=== PATIENT | female | born 1990 | race Caucasian/White ===

== ENCOUNTER 2019-05-08 22:12 | Emergency (ER) | payer BC, OTHER ==
[2019-05-08 23:12] LABS: APPEARANCE,URINE Clear (CLEAR); BILIRUBIN,URINE Negative (NEGATIVE); COLOR,URINE Yellow (YELLOW); GLUCOSE, URINE (UA) Negative (NEGATIVE); KETONES,URINE Negative (NEGATIVE); LEUKOCYTE ESTERASE ,URINE Negative (NEGATIVE); NITRATE,URINE Negative (NEGATIVE); OCCULT BLOOD,URINE Negative (NEGATIVE); PROTEIN,URINE Negative (NEGATIVE); UROBILINOGEN,URINE 0.2 mg/dL (0.2-1.0)
[2019-05-08 23:13] LABS: HCG,QUAL RESULT NEGATIVE (NEGATIVE)
[2019-05-08 23:15] LABS: BASOPHILS % (AUTO) 0.5 % (0.0-5.0); EOSINOPHILS % (AUTO) 2.4 % (0.0-8.0); HEMATOCRIT 36.3 % (36-48); MEAN CORPUSCULAR HEMOGLOBIN 29.5 pg (27.0-33.0); MEAN CORPUSCULAR HGB CONC 33.8 g/dL (32.0-36.0); MEAN CORPUSCULAR VOLUME 87.1 fL (79-99); MONOCYTES % (AUTO) 7.2 % (3.0-13.0); NEUTROPHILS % (AUTO) 57.9 % (40.0-77.0); PLATELET COUNT (AUTO) 341 K/uL (130-400); RED BLOOD CELL COUNT(AUTO) 4.16 MIL/uL (4.00-5.50); RED CELL DISTRIBUTION WIDTH 13.8 % (11.0-15.5); WHITE BLOOD COUNT (AUTO) 9.7 K/uL (4.8-10.8)
[2019-05-08 23:29] LABS: CREATININE 0.8 mg/dL (0.5-1.5); POTASSIUM 3.4 mmol/L (3.5-5.1)
[2019-05-08 23:33] LABS: ALBUMIN 4.2 g/dL (3.5-5.0); BILIRUBIN,TOTAL 0.2 mg/dL (0.2-1.0); TOTAL PROTEIN, SERUM 7.6 g/dL (6.0-8.3)
[2019-05-09] MEDS ORDERED: IOHEXOL-350 75 ML VIAL IV ONE (02:30)
== END 2019-05-09 04:26 | disposition home or self-care (01) ==
LOC: EDH 22:12
DX: R10.31 Right lower quadrant pain (principal); N83.291 Other ovarian cyst, right side; Z88.2 Allergy status to sulfonamides
CPT/HCPCS: 36415; 74177; 76705; 76856; 80053; 81003; 81025; 85025; 87210; 87486; 87797; 99285; Q9967

== ENCOUNTER 2020-04-15 03:04 | Inpatient (IN) | payer BC ==
[~2020-04-15] VITALS: Ht 160 cm; Wt 69.9 kg
[2020-04-15] MEDS ORDERED: LACTATED RINGERS 1000ML IV ONE (03:15)
[2020-04-15 03:25] VITALS: BP 153/101
[2020-04-15 03:53] LABS: APPEARANCE,URINE Clear (CLEAR); BILIRUBIN,URINE Negative (NEGATIVE); COLOR,URINE Yellow (YELLOW); GLUCOSE, URINE (UA) Negative (NEGATIVE); KETONES,URINE Negative (NEGATIVE); LEUKOCYTE ESTERASE ,URINE Negative (NEGATIVE); NITRATE,URINE Negative (NEGATIVE); OCCULT BLOOD,URINE Negative (NEGATIVE); PH,URINE 6.5 (5.0-8.0); PROTEIN,URINE Negative (NEGATIVE); UROBILINOGEN,URINE 0.2 mg/dL (0.2-1.0)
[2020-04-15] MEDS ORDERED: LACTATED RINGERS 1000ML 1,000 ML IV PRN (04:01)
[2020-04-15 04:45] LABS: CREATININE 0.7 mg/dL (0.5-1.5); POTASSIUM 3.7 mmol/L (3.5-5.1)
[2020-04-15 04:46] LABS: BASOPHILS % (AUTO) 0.4 % (0.0-5.0); EOSINOPHILS % (AUTO) 1.2 % (0.0-8.0); HEMATOCRIT 40.3 % (36-48); LYMPHOCYTES % (AUTO) 15.1 % (21.0-51.0); MEAN CORPUSCULAR HGB CONC 33.5 g/dL (32.0-36.0); MEAN CORPUSCULAR VOLUME 86.5 fL (79-99); MONOCYTES % (AUTO) 6.5 % (3.0-13.0); NEUTROPHILS % (AUTO) 75.6 % (40.0-77.0); PLATELET COUNT (AUTO) 290 K/uL (130-400); RED BLOOD CELL COUNT(AUTO) 4.66 MIL/uL (4.00-5.50); RED CELL DISTRIBUTION WIDTH 12.8 % (11.0-15.5); WHITE BLOOD COUNT (AUTO) 12.2 K/uL (4.8-10.8)
[2020-04-15 04:50] LABS: INR 0.87 (0.85-1.15); PARTIAL THROMBOPLASTIN TIME 25.4 SEC (26.3-35.5); PROTHROMBIN TIME 9.4 SEC (9.6-11.6)
[2020-04-15 04:51] LABS: ALBUMIN 2.9 g/dL (3.5-5.0); BILIRUBIN,TOTAL 0.2 mg/dL (0.2-1.0); URIC ACID 4.3 mg/dL (2.6-7.2)
[2020-04-15] MEDS ORDERED: OXYTOCIN 10 USP UNITS/ML 20 UNIT in LACTATED RINGERS 1000ML 1,000 ML IV SCH (07:15)
[2020-04-15] MEDS ORDERED: OXYTOCIN-LR 20 UNITS/1000 ML 1,000 ML IV ONE (07:25)
[2020-04-15] MEDS ORDERED: LACTATED RINGERS 500 ML 500 ML IV PRN (07:45)
[2020-04-15] MEDS ORDERED: EPHEDRINE SULFATE 50 MG/ML AMPULE IVP PRN (07:45)
[2020-04-15] MEDS ORDERED: NALOXONE HCL 0.4 MG/1 ML ML IV PRN (07:45)
[2020-04-15] MEDS ORDERED: OXYTOCIN-LR 20 UNITS/1000 ML 1,000 ML IV SCH (07:45)
[2020-04-15] MEDS ORDERED: FENTANYL CITRATE PF 50 MCG/1 ML 2ML VIAL ONE (07:48)
[2020-04-15] MEDS ORDERED: MEASLES/MUMPS/RUBELLA VACCINE, LIVE 0.5 ML/VIAL SQ PRN (11:00)
[2020-04-15] MEDS ORDERED: ACETAMINOPHEN-CODEINE 300/30MG TAB PO PRN (11:00)
[2020-04-15] MEDS ORDERED: WITCH HAZEL 1 PAD TP PRN (11:00)
[2020-04-15] MEDS ORDERED: DIPH,PERTUSS(ACELL),TET VAC/PF 0.5 ML VIAL IM PRN (11:00)
[2020-04-15] MEDS ORDERED: ACETAMINOPHEN 325 MG TAB PO PRN (11:00)
[2020-04-15] MEDS ORDERED: BENZOCAINE/LANOLIN/ALOE VERA 60 ML AEROSOL TP PRN (11:00)
[2020-04-15] MEDS ORDERED: LANOLIN 30GM OINTMENT TP PRN (11:00)
[2020-04-15 12:20] VITALS: BP 140/77
[2020-04-15] MEDS ORDERED: PNV1TABL17 PO (12:46)
[2020-04-15] MEDS: IBUPROFEN 600 MG TABLET PO PRN (16:31)
[2020-04-15 16:37] VITALS: BP 138/79
[2020-04-15 19:34] VITALS: BP 146/99
[2020-04-15 20:42] VITALS: BP 127/80
[2020-04-15] MEDS: DOCUSATE SODIUM 100 MG CAP PO SCH (22:05)
[2020-04-16 00:28] VITALS: BP 151/97
[2020-04-16] MEDS: IBUPROFEN 600 MG TABLET PO PRN ×2 (00:28→08:00)
[2020-04-16 04:20] VITALS: BP 121/83
[2020-04-16 06:11] LABS: HEPATITIS Bs ANTIGEN SCREEN P Negative (Negative)
[2020-04-16 07:32] VITALS: BP 130/84
[2020-04-16] MEDS: DOCUSATE SODIUM 100 MG CAP PO SCH (07:58)
--- NOTE | 2020-04-16 10:35 | NUR ---
DISCHARGE INSTRUCTIONS READ AND EXPLAINED TO PATIENT. RX FOR MOTRIN 800MG AND COLACE 100MG HANDED TO PATIENT. HEMORRHAGE REVIEWED WITH PATIENT. PT VOICED ALL UNDERSTANDING.
[2020-04-16 11:46] VITALS: BP 138/85
--- NOTE | 2020-04-16 13:20 | NUR ---
PATIENT LEFT UNIT VIA WHEELCHAIR WITH BABY IN ARMS. PERSONAL VEHICLE USED FOR TRANSPORTATION ACCOMPANIED BY . BABY SECURE IN CARSEAT. NO COMPLAINTS OR CONCERNS ADDRESSED FROM PATIENT ON DISCHARGE.
== END 2020-04-16 13:20 | disposition home or self-care (01) | DRG 807 ==
LOC: EDH 03:04 → LDH 03:05 → OBSVTOIN 03:05 → WSH 12:15
PROVIDERS: ADMIT Obstetrics & Gynecology; ATTEND Obstetrics & Gynecology
PROC: 10E0XZZ Delivery of Products of Conception, External Approach (ICD-10-PCS; principal; 2020-04-15)
PROC: 0KQM0ZZ Repair Perineum Muscle, Open Approach (ICD-10-PCS; 2020-04-15)
PROC: 10907ZC Drainage of Amniotic Fluid, Therapeutic from Products of Conception, Via Natural or Artificial Opening (ICD-10-PCS; 2020-04-15)
PROC: 3E0R3BZ Introduction of Anesthetic Agent into Spinal Canal, Percutaneous Approach (ICD-10-PCS; 2020-04-15)
PROC: 00HU33Z Insertion of Infusion Device into Spinal Canal, Percutaneous Approach (ICD-10-PCS; 2020-04-15)
PROC: 3E0234Z Introduction of Serum, Toxoid and Vaccine into Muscle, Percutaneous Approach (ICD-10-PCS; 2020-04-15)
PROC: 3E0134Z Introduction of Serum, Toxoid and Vaccine into Subcutaneous Tissue, Percutaneous Approach (ICD-10-PCS; 2020-04-15)
DX: O70.1 Second degree perineal laceration during delivery (principal); Z37.0 Single live birth; Z3A.39 39 weeks gestation of pregnancy; Z23 Encounter for immunization; Z88.2 Allergy status to sulfonamides
CPT/HCPCS: 36415; 80053; 81003; 84550; 85025; 85384; 85610; 85730; 86592; 86850; 86900; 86901; 87340; 90715; 96360; A4314; G0378; J2590; J3010